=== PATIENT | female | born 1955 | race Caucasian/White ===

== ENCOUNTER 2025-03-22 13:00 | Outpatient (RCR) | payer MEDICARE, SELFPAY ==
--- NOTE | 2025-01-28 10:42 | OPREHPOC ---
Outpatient Therapy Plan of Care This is a Multidisciplinary Plan of Care that may contain components documented by all disciplines (PT, OT, and ST.) PT Problem 1 PT Problem #1 Knowledge Deficit PT Goal 1 Goal / Goal Update 1. Patient will perform independent HEP Target Visit 2 PT Problem 2 PT Problem #2 Impaired Strength PT Goal 1 Goal / Goal Update 1. Improve pelvic floor strength to 5/5 to reduce incontinence 2. Patient able to engage low abdominal muscles without compensation Target Visit 5 PT Problem 3 PT Problem #3 Impaired Functional ADLs PT Goal 1 Goal / Goal Update 1. Patient will report urinary incontinence no more than 1 time a week 2. Patient will be able to hold urge to void at least 30 minutes 3. Patient will void no more than 8 times in a 24 hour period Target Visit 5
--- NOTE | 2025-01-28 10:42 | PTOPEVAL1 ---
Assessment and note entered by Briana Kwon DPT Evaluation Information Assessment Status Evaluation ICD-10 Condition Codes (PT) Weakness R53.1,Urge incontinence N39.41 Subjective Information Pt reports urge incontinence that has been for about a year. Voids 20 times a day and 5 instances of urge incontinence a day at the most. Will notice improvement if cutting back on coffee per her MD recommendation. Cannot hold urge to void at all. Denies pain with urination. Denies stress incontinence. BM once a day, also reports fecal urgency and has had fecal incontinence 1 time a month on average. Denies pain with BM. Denies history of pelvic pain. Pt has been 2 times with 2 vaginal deliveries, tearing with both . Partial hysterectomy at age 24. No b/b history. Hernia repair 20 years ago, gastric bypass in 2003 . Pt reports frustration and difficulty doing her daily activities due to the incontinence and frequent urination, will have to stop to find a bathroom while driving. Does not go out in the community as often like to do activities at religious . Wears pads all the time, 3-4 a day. Has to change clothes at times. Patient goal: be able to ride in the car and not stop every time I see a gas station, be able to play cards with friends without leaking on myself. Returns to urology in March. Reported Pain Level Pain Score 0: Self Report Assessment PT Clinical Summary The patient is presenting to skilled therapy with a history of significant urinary urgency, urge incontinence, and intermittent fecal urgency and incontinence for approximately 1 year. She presents with decreased pelvic floor strength and decreased hip and abdominal strength. These impairments are contributing to her symptoms, and patient will highly benefit from education in urge suppression strategies in order to restore full function. Plan of Care Interventions Manual Therapy,Neuro Re-education,Patient/ Caregiver Education,Therapeutic Activities, Therapeutic Exercise PT Services Indicated Yes Treatment Frequency and 1 time a week for 5 visits Duration These treatments will address the objective and functional deficits as defined above. The patient will be advanced safely and appropriately in order for the patient to progress towards his/her prior level of function. Additional exercises will be introduced and as well as a comprehensive home exercise program upon discharge, if needed, ?to ensure carryover of functional gains achieved in the clinic. This treatment plan has been reviewed and agreement upon by the patient.
--- NOTE | 2025-02-22 14:24 | PTOPPROG ---
Assessment and note entered by Briana Kwon DPT Evaluation Information Assessment Status Progress ICD-10 Condition Codes (PT) Weakness R53.1,Urge incontinence N39.41 Subjective Information Pt overall feels a lot better with doing therapy , still having issues at night. Takes lasix at night which still causes increased frequency and incontinence. Voids 7 times a day, still 5 times at night. No daytime incontinence for several days until this weekend which she can attribute to drinking regular coffee. Can hold urge to void up to 15 minutes. No fecal urgency or incontinence recently. Still wearing pads or liners, no more than 2 a day. Assessment PT Clinical Summary The patient reports excellent progress so far in therapy and reports decreased frequency of urination, decreased urge incontinence, and decreased overall urgency. She does continue to have intermittent urge incontinence during the day and night urge incontinence that seems related to lasix. She also demonstrates improved pelvic floor, hip, and abdominal strength. She will continue to benefit from skilled therapy to further address her impairments in order to eliminate urgency and incontinence in order to restore full function. Plan of Care Interventions Manual Therapy,Neuro Re-education,Patient/ Caregiver Education,Therapeutic Activities, Therapeutic Exercise PT Services Indicated Yes Treatment Frequency and 1 time a week for 4 visits Duration These treatments will address the objective and functional deficits as defined above. The patient will be advanced safely and appropriately in order for the patient to progress towards his/her prior level of function. Additional exercises will be introduced and as well as a comprehensive home exercise program upon discharge, if needed, ?to ensure carryover of functional gains achieved in the clinic. This treatment plan has been reviewed and agreement upon by the patient.
--- NOTE | 2025-03-15 09:43 | PCPTNOTE ---
Patient called to cancel appointment 03/15/25 due to her car being in the shop all week.
--- NOTE | 2025-03-22 13:34 | OPREHPOC ---
Outpatient Therapy Plan of Care This is a Multidisciplinary Plan of Care that may contain components documented by all disciplines (PT, OT, and ST.) PT Problem 1 PT Problem #1 Knowledge Deficit PT Goal 1 Goal / Goal Update 1. Patient will perform independent HEP Target Visit 2 Progress Met PT Goal 2 Goal / Goal Update new goal 02/22/10 2. Patient will verbalize urge suppression strategies Target Visit 9 Progress Met PT Problem 2 PT Problem #2 Impaired Strength PT Goal 1 Goal / Goal Update 1. Improve pelvic floor strength to 5/5 to reduce incontinence 2. Patient able to engage low abdominal muscles without compensation update 02/22/25 1. improved to 4/5 2. met Target Visit 9 Progress Partially Met PT Problem 3 PT Problem #3 Impaired Functional ADLs PT Goal 1 Goal / Goal Update 1. Patient will report urinary incontinence no more than 1 time a week 2. Patient will be able to hold urge to void at least 30 minutes 3. Patient will void no more than 8 times in a 24 hour period update 02/22/25 1. improved to multiple times a week except at night 2. improved to 15 3. 7 during the day, 5 at night Target Visit 9 Progress Partially Met
--- NOTE | 2025-03-22 13:34 | PTOPDC ---
Assessment and note entered by Briana Kwon DPT Evaluation Information Assessment Status Discharge ICD-10 Condition Codes (PT) Weakness R53.1,Urge incontinence N39.41 Subjective Information Pt reports she continues to feel better with therapy, taking the lasix still affects her. Avoiding coffee which helps. Voiding 7 times a day and 4 times at night. Has been able to hold urge to void up to 25 minutes but is less often. Wears a thin liner at home, one a day, but will change more often in the community just in case. Daytime incontinence one time in the last week. Reported Pain Level Pain Score 0: Self Report Assessment PT Clinical Summary The patient has made excellent progress in therapy and reports continued improvements in the frequency of her incontinence to once a week ( except at night after taking lasix). Due to her progress and independence with HEP, discharge is recommended at this time. Plan of Care PT Services Indicated No
== END 2025-03-22 15:51 | disposition home or self-care (01) ==
LOC: ANHGOSHPT 13:00
PROVIDERS: PCP Family Medicine; Visit Provider Physician Assistant
DX: N39.41 Urge incontinence (principal)
CPT/HCPCS: 97112; 97161; 97530